=== PATIENT | female | born 1975 | race Caucasian/White ===

== ENCOUNTER 2019-04-01 14:15 | Emergency (ER) | payer MEDICAID ==
[~2019-04-01] VITALS: Ht 162.6 cm; Wt 61.7 kg
[2019-04-01 14:17] VITALS: BP 127/74; PULSE 87; RESP 19; Ht 162.6 cm; Wt 61.7 kg
[2019-04-01] MEDS ORDERED: BUTA1CAP38 PO (16:58)
[2019-04-01] MEDS ORDERED: IBUP-1542 PO (16:58)
--- NOTE | 2019-04-01 17:06 | ERD ---
ER Documentation Chief Complaint Chief Complaint headache x 4 days; fainted today loss consciousness and dizziness HPI 43-year-old female presents with posterior headache for last 4 days. She had an episode of syncope today after she was doing some housework. She currently complains of occipital headache but denies any vomiting, dizziness, chest pain, weakness or deficits. She is here with her daughter. She denies previous me dical conditions patient has recent illnesses, abdominal pain, urinary complaints, additional symptoms. ROS All systems reviewed and are negative except as per history of present illness. Medications Home Meds Active Scripts Ibuprofen* (Motrin*) 600 Mg Tab, 600 MG PO Q6, #15 TAB Prov:AUSTIN KHANNA MD 04/01/19 Ccgcqxjsws-Stgryrtaajjzp-Racgtbol* (Fioricet*) 50-300-40 Mg Capsule, 1 CAP PO Q4H PRN for HEADACHE, #12 CAP Prov:AUSTIN KHANNA MD 04/01/19 FmHx Family History: No diabetes, No coronary disease, No other Physical Exam Vitals Vital Signs Date Temp Pulse Resp B/P (MAP) Pulse Ox O2 O2 Flow FiO2 Time Delivery Rate 04/01/19 98.1 87 19 127/74 98 14:17 (91) Physical Exam Const: No acute distress Head: Atraumatic Eyes: Normal Conjunctiva .eyes Donovan and extraocular movements intact. ENT: Normal External Ears, Nose and Mouth. Neck: Full range of motion. No meningismus. Resp: Clear to auscultation bilaterally Cardio: Regular rate and rhythm, no murmurs Abd: Soft, non tender, non distended. Normal bowel sounds Skin: No petechiae or rashes Back: No midline or flank tenderness Ext: No cyanosis, or edema Neur: Awake and alert. Negative Romberg negative pronator drift. Ambulatory without deficits or weakness. Normal gait. Cranial nerves 2 through 12 grossly intact. Psych: Normal Mood and Affect Result Diagram: 04/01/19 1532 04/01/19 1532 Results 24 hrs Laboratory Tests Test 04/01/19 15:32 04/01/19 15:46 White Blood Count 6.6 10^3/ul Red Blood Count 4.31 10^6/ul Hemoglobin 13.1 g/dl Hematocrit 39.4 % Mean Corpuscular Volume 91.4 fl Mean Corpuscular Hemoglobin 30.4 pg Mean Corpuscular Hemoglobin Concent 33.2 g/dl Red Cell Distribution Width 12.1 % Platelet Count 269 10^3/UL Mean Platelet Volume 9.8 fl Immature Granulocytes % 0.300 % Neutrophils % 61.3 % Lymphocytes % 30.1 % Monocytes % 7.4 % Eosinophils % 0.6 % Basophils % 0.3 % Nucleated Red Blood Cells % 0.0 /100WBC Immature Granulocytes # 0.020 10^3/ul Neutrophils # 4.0 10^3/ul Lymphocytes # 2.0 10^3/ul Monocytes # 0.5 10^3/ul Eosinophils # 0.0 10^3/ul Basophils # 0.0 10^3/ul Nucleated Red Blood Cells # 0.0 10^3/ul Urine Color STRAW Urine Clarity CLEAR Urine Specific [place] 1.000 Urine Ketones NEGATIVE mg/dL Urine Nitrite NEGATIVE mg/dL Urine Bilirubin NEGATIVE mg/dL Urine Urobilinogen 0.2 E.U./dL mg/dL Urine Leukocyte Esterase NEGATIVE Jackie/ul Urine Microscopic RBC 2 /HPF Urine Microscopic WBC 2 /HPF Urine Squamous Epithelial Cells FEW /HPF Urine Hemoglobin NEGATIVE mg/dL Urine Glucose NEGATIVE mg/dL Urine Total Protein NEGATIVE mg/dl Sodium Level 144 mmol/L Potassium Level 4.4 mmol/L Chloride Level 107 mmol/L Carbon Dioxide Level 30 mmol/L Anion Gap 7 Blood Urea Nitrogen 18 mg/dl Creatinine 0.83 mg/dl Est Glomerular Filtrat Rate mL/min > 60 mL/min Glucose Level 87 mg/dl Calcium Level 9.2 mg/dl Total Bilirubin 0.3 mg/dl Direct Bilirubin 0.00 mg/dl Indirect Bilirubin 0.3 mg/dl Aspartate Amino Transf (AST/SGOT) 20 IU/L Alanine Aminotransferase (ALT/SGPT) 20 IU/L Alkaline Phosphatase 49 IU/L Total Protein 7.9 g/dl Albumin 4.4 g/dl Globulin 3.50 g/dl Albumin/Globulin Ratio 1.25 POC Beta HCG, Qualitative NEGATIVE Procedures/MDM EKG: Rate/Rhythm: Normal Sinus Rhythm. Rate equals 71 QRS, ST, T-waves: No changes consistent w/ acute ischemia Impression: No evidence of ischemia or arrhythmia BC, CMP and urine is normal. hCG negative. Patient was stable and amatory throughout the ER course without concerning signs or symptoms. Patient presents with a proximal headache for the last 5 days. She has no signs of neurologic deficit, mass-effect, signs of meningitis, additional signs or symptoms to suggest emergent cause of headache. She has of a syncopal episode today, p ossibly vasovagal due to pain as she has a normal exam currently. She will be discharged home with further observation, return precautions and primary care follow-up. The patient was stable with no new complaints during the ER course. Clinically, there is no current evidence to suggest meningitis, sepsis, acute abdomen, pneumonia, stroke, acute coronary syndrome, pulmonary embolism, aortic dissection or any other emergent condition appearing to require further evaluation or hospitalization. Patient counseled regarding my diagnostic impression and care plan. Prior to discharge all questions answered. Pt agrees with treatment plan and understands strict return precautions. Pt is instructed to follow up with primary care provider within 24-48 hours. Precautionary instructions provided including instructions to return to the ER if not improving or for any worsening or changing symptoms or concerns. Disclaimer: Inadvertent spelling and grammatical errors are likely due to EHR/dictation software use and do not reflect on the overall quality of patient care. Also, please note that the electronic time recorded on this note does not necessarily reflect the actual time of the patient encounter. Departure Diagnosis: Primary Impression: Syncope Syncope type: unspecified Qualified Codes: R55 - Syncope and collapse Additional Impression: Headache Headache type: unspecified Headache chronicity pattern: unspecified pattern Intractability: not intractable Qualified Codes: R51 - Headache Condition: Stable Patient Instructions: Headache, Unspecified, Syncope, Unk Cause Additional Instructions: All examinations normal today. Recheck for new worsening symptoms or with primary care doctor. Examines normal hoy. Cheque otro vez con gregg doctor primario en el proximo ovalle or regresa para mas o nueva simptomas. AUSTIN KHANNA MD April 01, 2019 17:06
== END 2019-04-01 17:33 | disposition home or self-care (01) ==
LOC: FTE 14:15
DX: R55 Syncope and collapse (principal)
CPT/HCPCS: 70450; 80053; 81003; 81025; 85025; 93005; Z7502